=== PATIENT | female | born 1980 | race Caucasian/White ===

== ENCOUNTER 2018-01-12 13:39 | Outpatient (CLI) | payer BC ==
[2018-01-12 14:18] LABS: AMORPHOUS SEDIMENT,URINE TRACE /HPF; APPEARANCE,URINE SLIGHTLY-CLOUDY; BILIRUBIN,URINE NEGATIVE (NEGATIVE); COLOR,URINE YELLOW; GLUCOSE, URINE NEGATIVE (NEGATIVE); KETONES,URINE NEGATIVE (NEGATIVE); LEUKOCYTE ESTERASE,URINE NEGATIVE (NEGATIVE); NITRITE,URINE NEGATIVE (NEGATIVE); PROTEIN,URINE NEGATIVE (NEGATIVE); URINE SPECIFIC GRAVITY 1.012; UROBILINOGEN,URINE NEGATIVE mg/dL (<2.0)
[2018-01-12 14:40] LABS: URINE AMPHETAMINES SCREEN NEGATIVE; URINE BARBITURATES SCREEN NEGATIVE; URINE BENZODIAZEPINES SCREEN NEGATIVE; URINE COCAINE SCREEN NEGATIVE; URINE MARIJUANA (THC) SCREEN NEGATIVE; URINE METHADONE SCREEN NEGATIVE; URINE PHENCYCLIDINE SCREEN NEGATIVE
--- NOTE | 2018-01-12 15:09 | RADIOLOGY REPORT (SQ) ---
EXAM DESCRIPTION: U/S OB LIMITED COMPLETED DATE/TIME: 01/12/2018 2:52 pm REASON FOR STUDY: cervical length and eval placenta gestation 31 weeks 2 days COMPARISON: None. TECHNIQUE: Limited transabdominal grayscale ultrasound for evaluation of specific requested obstetri charli parameters. LIMITATIONS: None. FINDINGS: CERVICAL LENGTH: 3.3 cm. Closed. MARKOS: Not evaluated. Cm. FHR: 158 beats per minute. PRESENTATION: Cephalic. PLACENTA: Fundal grade 1. ANATOMY: Not assessed OTHER: No other significant findings. IMPRESSION: LIMITED OBSTETRICAL ULTRASOUND WITH MEASURED PARAMETERS DELINEATED ABOVE. Trimester of : Third trimester - 28 weeks to delivery. TECHNICAL DOCUMENTATION: JOB ID: [id number] [employer]- All Rights Reserved Reading location - IP/workstation name: [email or web address]
== END 2018-01-12 16:05 | disposition home or self-care (01) ==
LOC: LC 13:39
PROVIDERS: ATTEND Obstetrics & Gynecology
PROC: 4A1HXCZ Monitoring of Products of Conception, Cardiac Rate, External Approach (ICD-10-PCS; principal; 2018-01-12)
DX: O47.03 False labor before 37 completed weeks of gestation, third trimester (principal); O09.513 Supervision of elderly primigravida, third trimester; Z3A.31 31 weeks gestation of pregnancy
CPT/HCPCS: 59025; 76815; 80307; 81001

== ENCOUNTER 2018-02-04 10:30 | Outpatient (CLI) | payer BC ==
[2018-02-04 11:50] LABS: APPEARANCE,URINE CLOUDY; BILIRUBIN,URINE NEGATIVE (NEGATIVE); COLOR,URINE YELLOW; GLUCOSE, URINE NEGATIVE (NEGATIVE); KETONES,URINE NEGATIVE (NEGATIVE); LEUKOCYTE ESTERASE,URINE NEGATIVE (NEGATIVE); NITRITE,URINE NEGATIVE (NEGATIVE); PROTEIN,URINE NEGATIVE (NEGATIVE); URINE SPECIFIC GRAVITY 1.014; UROBILINOGEN,URINE NEGATIVE mg/dL (<2.0)
[2018-02-04 12:01] LABS: ABSOLUTE LYMPHOCYTES (AUTO) 1.5 10^3/uL (0.5-4.7); ABSOLUTE MONOCYTES (AUTO) 0.6 10^3/uL (0.1-1.4); ABSOLUTE NEUT (AUTO) 8.4 10^3/uL (1.7-8.2); BASOPHILS % (AUTO) 0.2 % (0-2); EOSINOPHILS % (AUTO) 0.4 % (0-6); HEMATOCRIT 29.7 % (36.0-47.0); HEMOGLOBIN 10.5 g/dL (12.0-15.5); LYMPHOCYTES % (AUTO) 14.6 % (13-45); MEAN CORPUSCULAR HEMOGLOBIN 32.7 pg (27.0-33.4); MEAN CORPUSCULAR HGB CONC 35.4 g/dL (32.0-36.0); MEAN CORPUSCULAR VOLUME 92 fl (80-97); MONOCYTES % (AUTO) 5.5 % (3-13); PLATELET COUNT 212 10^3/uL (150-450); RED BLOOD COUNT 3.22 10^6/uL (3.72-5.28); RED CELL DISTRIBUTION WIDTH 13.4 % (11.5-14.0); SEGMENTED NEUTROPHILS % (AUTO) 79.3 % (42-78); TOTAL CELLS COUNTED % (AUTO) 100 %; WHITE BLOOD COUNT 10.6 10^3/uL (4.0-10.5)
[2018-02-04 12:04] LABS: URINE AMPHETAMINES SCREEN NEGATIVE; URINE BARBITURATES SCREEN NEGATIVE; URINE BENZODIAZEPINES SCREEN NEGATIVE; URINE COCAINE SCREEN NEGATIVE; URINE MARIJUANA (THC) SCREEN NEGATIVE; URINE METHADONE SCREEN NEGATIVE; URINE PHENCYCLIDINE SCREEN NEGATIVE
[2018-02-04 12:08] LABS: UR PRO/CREAT RATIO RESULT 0.2 mg/mg (0.0-0.2); URINE CREATININE 101.8 mg/dL (16-327); URINE PROTEIN 15.6 mg/dL (<12)
[2018-02-04 12:21] LABS: ALANINE AMINOTRANSFERASE 15 U/L (9-52); ALBUMIN 3.3 g/dL (3.5-5.0); ALKALINE PHOSPHATASE 62 U/L (38-126); ANION GAP 8 (5-19); ASPARTATE AMINO TRANSFERASE 17 U/L (14-36); BILIRUBIN,DIRECT 0.2 mg/dL (0.0-0.4); BILIRUBIN,TOTAL 0.3 mg/dL (0.2-1.3); BLOOD UREA NITROGEN 6 mg/dL (7-20); CALCIUM 9.4 mg/dL (8.4-10.2); CARBON DIOXIDE 26 mmol/L (22-30); CHLORIDE 105 mmol/L (98-107); GLUCOSE 107 mg/dL (75-110); POTASSIUM 3.6 mmol/L (3.6-5.0); TOTAL PROTEIN 5.8 g/dL (6.3-8.2); URIC ACID 4.4 mg/dL (2.5-7.0)
--- NOTE | 2018-02-04 14:56 | Non Stress Test Report ---
Non Stress Test Datetime Report Generated by CPN: 02/04/2018 14:56 DEMOGRAPHIC EGA NST: 34.5 EGA NST: 31.3 INDICATION Indication for Study: Ordered by Provider Indication for Study: Ordered by Provider VITAL SIGNS Temperature - NST: 99.7 RESP - NST: 18 MONITORING Monitor Explained: Monitor Explained; Test Explained; Patient Verbalized Understanding Monitor Explained: Monitor Explained; Test Explained; Patient Verbalized Understanding Time on Monitor: 02/04/2018 11:04 Time on Monitor: 01/12/2018 14:05 Time off Monitor: 02/04/2018 13:16 Time off Monitor: 01/12/2018 15:58 NST Duration: 132 NST Duration: 113 NST INTERVENTIONS NST Interventions: PO Hydration; Reposition Patient NST Interventions: PO Hydration Physician Notified NST: Dr. Mancia BABY A: [id number] BABY A Movement : Present Movement : Present Contraction Frequency : rare FHR Baseline : 145 FHR Baseline : 135 Accelerations : 15X15 Accelerations : 15X15 Decelerations : None Decelerations : None Variability : Moderate 6-25bpm Variability : Moderate 6-25bpm NST Review: Meets Criteria for Reactive NST NST Review: Meets Criteria for Reactive NST NST Review and Verified By : Di Peña RN NST Review and Verified By : Dean Bennett RN NST Results: Reactive NST Results: Reactive NST REPORT Report Trigger: Send Report
== END 2018-02-04 13:35 | disposition home or self-care (01) ==
LOC: LC 10:30
PROVIDERS: ATTEND Obstetrics & Gynecology
PROC: 4A1HXCZ Monitoring of Products of Conception, Cardiac Rate, External Approach (ICD-10-PCS; principal; 2018-02-04)
DX: O14.93 Unspecified pre-eclampsia, third trimester (principal); Z3A.34 34 weeks gestation of pregnancy
CPT/HCPCS: 36415; 59025; 80053; 80307; 81001; 82570; 83615; 84156; 84550; 85025

== ENCOUNTER 2018-02-20 17:13 | Inpatient (IN) | payer BC ==
[2018-02-20] MEDS ORDERED: DINOPROSTONE 10 MG VAGINAL INSERT.SR PV PRN (17:19)
[2018-02-20] MEDS ORDERED: RINGERS SOLUTION,LACTATED 300 ML IV ONE (17:19)
[2018-02-20 18:06] LABS: ABSOLUTE EOSINOPHILS # (AUTO) 0.1 10^3/uL (0.0-0.6); ABSOLUTE LYMPHOCYTES (AUTO) 2.3 10^3/uL (0.5-4.7); ABSOLUTE MONOCYTES (AUTO) 0.7 10^3/uL (0.1-1.4); ABSOLUTE NEUT (AUTO) 9.2 10^3/uL (1.7-8.2); BASOPHILS % (AUTO) 0.2 % (0-2); EOSINOPHILS % (AUTO) 0.6 % (0-6); HEMATOCRIT 31.8 % (36.0-47.0); HEMOGLOBIN 10.9 g/dL (12.0-15.5); LYMPHOCYTES % (AUTO) 18.5 % (13-45); MEAN CORPUSCULAR HEMOGLOBIN 31.5 pg (27.0-33.4); MEAN CORPUSCULAR HGB CONC 34.4 g/dL (32.0-36.0); MEAN CORPUSCULAR VOLUME 92 fl (80-97); MONOCYTES % (AUTO) 5.5 % (3-13); PLATELET COUNT 241 10^3/uL (150-450); RED BLOOD COUNT 3.47 10^6/uL (3.72-5.28); RED CELL DISTRIBUTION WIDTH 13.7 % (11.5-14.0); SEGMENTED NEUTROPHILS % (AUTO) 75.2 % (42-78); TOTAL CELLS COUNTED % (AUTO) 100 %; WHITE BLOOD COUNT 12.2 10^3/uL (4.0-10.5)
[2018-02-20] MEDS: RINGERS SOLUTION,LACTATED 1,000 ML IV PRN (18:10)
[2018-02-20] MEDS ORDERED: DINOPROSTONE 10 MG VAGINAL INSERT.SR ONE (18:24)
[2018-02-20] MEDS ORDERED: GLYBURIDE 5 MG TABLET ONE (19:59)
[2018-02-20] MEDS ORDERED: NIFEDIPINE 30 MG TAB.ER.24 PO ONE ×2 (20:00→21:00)
--- NOTE | 2018-02-20 20:06 | Admission Physical ---
Datetime Report Generated by CPN: 02/20/2018 20:05 CURRENT ADMISSION Chief Complaint: Scheduled Induction of Labor Indication for Induction: Chronic Secondary HTN (Specify Cause); Maternal Diabetes Indication for Induction- Other: AMA, obesity Admit Impression : Term, Intrauterine ; No Active Labor Admit Plan: Admit to Unit; Initiate Labor Induction Protocol ALLERGIES Medication Allergies: Yes Medication Allergies: codeine/MO/headache, anxie (01/12/2018) Latex: No Latex Allergies Food Allergies: n/a Environmental Allergies: seasonal OBSTETRICAL HISTORY EDC: 03/13/2018 00:00 : 1 Para: 0 Term: 0 : 0 SAB: 0 IAB: 0 Ectopic: 0 Livin Cesareans: 0 VBACs: 0 Multiple Births: 0 Gestational Diabetes: Yes Rh Sensitization: No Incompetent Cervix: No TOMÁS: No Infertility: Yes ART Treatment: No Uterine Anomaly: No IUGR: No Hx Previous C/S: No Macrosomia: No Hx Loss/Stillborn: No PIH: No Hx : No Placenta Previa/Abruption: No Depression/PP Depression: No PTL/PROM: No Post Hemorrhage: No Current Procedures: Ultrasound; NST Obstetrical History Comments: G1- current , GDM, CHTN SEE RECORDS Alcohol: No Marijuana : No Cocaine: No Other Illicit Drugs: No Cigarettes: Former Smoker. [id number] MEDICAL HISTORY Diabetes: No Diabetes Type: Gestational Diabetes Blood Transfusion: No Pulmonary Disease (Asthma, TB): No Breast Disease: No Hypertension: Yes Manager Background Surgery: No Heart Disease: No Hosp/Surgery: Yes Autoimmune Disorder: No Anesthetic Complications: No Kidney Disease: Yes Abnormal Pap Smear: No Neuro/Epilepsy: No Psychiatric Disorders: No Other Medical Diseases: No Hepatitis/Liver Disease: No Significant Family History: No Varicosities/Phlebitis: No Trauma/Violence : No Thyroid Dysfunction: No Medical History Comments: CHTN AMA OBESITY HX KIDNEY STONES/cyst removed from neck /tonsillectomy/ulnar transpo INFECTIOUS HISTORY Gonorrhea: No Genital Herpes: No Chlamydia: No Tuberculosis: No Syphilis: No Hepatitis: No HIV/AIDS Exposure: No Rash or Viral Illness: No HPV: No PHYSICAL EXAM General: Normal HEENT: Normal Neurologic: Normal Thyroid: Normal Heart: Normal Lungs: Normal Breast: Normal Back: Normal Abdomen: Normal Genitourinary Exam: Normal Extremities: Normal DTRs: Normal Pelvic Type: Adequate Vital Signs: Reviewed; Within Normal Limits VAGINAL EXAM Dilatation: closed Effacement: 50 Station: -2 Contraction Comments: irregular MEMBRANES Membranes: Intact FETUS A EGA: 37.0 Monitoring: External US FHR- Baseline: 140s Accelerations: 15X15 Decelerations: None FHR Category: Category I Admit Comment: Pt currently taking Glyburide 2.5 mg qhs and Procardia 30 mg qd. Cervidil placed at 1836. PLANS FOR LABOR AND DELIVERY Labor and Delivery: None Pain Management: Natural; Medications; Epidural Feeding Preference: Breast Benefit of Breast Feed Discussed: Yes Circumcision: N/A INFORMED CONSENT Signature: with User ID: [email or web address]
[2018-02-20] MEDS ORDERED: GLYBURIDE 2.5 MG TABLET PO ONE (20:20)
[2018-02-20 20:50] LABS: APPEARANCE,URINE SLIGHTLY-CLOUDY; BILIRUBIN,URINE NEGATIVE (NEGATIVE); COLOR,URINE YELLOW; GLUCOSE, URINE NEGATIVE (NEGATIVE); KETONES,URINE 20 mg/dL (NEGATIVE); LEUKOCYTE ESTERASE,URINE NEGATIVE (NEGATIVE); NITRITE,URINE NEGATIVE (NEGATIVE); PROTEIN,URINE 30 mg/dL (NEGATIVE); UROBILINOGEN,URINE NEGATIVE mg/dL (<2.0)
[2018-02-20 21:47] LABS: URINE AMPHETAMINES SCREEN NEGATIVE; URINE BARBITURATES SCREEN NEGATIVE; URINE BENZODIAZEPINES SCREEN NEGATIVE; URINE COCAINE SCREEN NEGATIVE; URINE MARIJUANA (THC) SCREEN NEGATIVE; URINE METHADONE SCREEN NEGATIVE; URINE PHENCYCLIDINE SCREEN NEGATIVE
[2018-02-21] MEDS ORDERED: ACETAMINOPHEN 325 MG TABLET ONE (05:35)
[2018-02-21] MEDS ORDERED: OXYTOCIN/NORMAL SALINE 20 UNIT/1,000 ML RTUINJ ONE (08:55)
[2018-02-21] MEDS ORDERED: RINGERS SOLUTION,LACTATED 1,000 ML IV PRN (08:59)
[2018-02-21] MEDS ORDERED: OXYTOCIN/NORMAL SALINE 20 UNIT/1,000 ML RTUINJ IV PRN ×2 (08:59→17:02)
[2018-02-21] MEDS: RINGERS SOLUTION,LACTATED 1,000 ML IV PRN (09:14)
[2018-02-21] MEDS ORDERED: DIPHENHYDRAMINE HCL 25 MG CAPSULE ONE (09:19)
--- NOTE | 2018-02-21 09:19 | L&D Progress Notes ---
PROGRESS NOTES Datetime Report Generated by CPN: 02/21/2018 09:18 PROGRESS NOTE Impression Other: IUP @ 37w1d- IOL Procedures: Sterile Vag Exam Plan: Continue Present Management; Induction Informed Consent Obtained: Vaginal Delivery; Induction of Labor; Risks, Benefits and Alternatives Discussed Vital Signs : Reviewed; Within Normal Limits Comment: S: reports to be doing well this morning, rare cramping, no concerns O: VSS, cervix as stated,posterior and soft, cervidil out @ 0630, irreg contractions A: IUP @ 37w1d- IOL for AMA, CHTN, GDM A2-stable, P: Reviewed lack of change with cervidil, start pitocin per Dr. Arrieta who is the OB otm consultant today. Reviewed Plan with patient. Will reasess as clinically indicated or earlier prn. VAGINAL EXAM Dilatation: 0 Dilatation: closed Effacement: 0 Effacement: 50 Station: -3 Station: -2 Contractions: irreg Contractions: irregular LAST VAGINAL EXAM-NURSING Dilitation: 0.0 Dilitation: closed Effacement: THICK Effacement: 50 Station: -3 Station: -2 Contractions: uterine irritability Contractions: none MEMBRANES Membranes: Intact Membranes: Intact FETUS A FHR - Baseline: 150 Monitoring: External US Variability: Moderate 6-25bpm Accelerations: 15X15 FHR Category: Category I : 37.0 SIGNATURE SIGNATURE: [id number];[id number];[id number] SIGNATURE: [id number];[id number] SIGNATURE: [id number] Assignment: Isai Arrieta MD Signature: with User ID: Vicki : with User ID: [email or web address]
[2018-02-21] MEDS ORDERED: MAG HYDROX/AL HYDROX/SIMETH SUSP 30 ML UDCUP ONE ×2 (09:20→22:00)
[2018-02-21] MEDS ORDERED: DIPHENHYDRAMINE HCL 25 MG CAPSULE PO ONE (10:00)
[2018-02-21] MEDS ORDERED: MAG HYDROX/AL HYDROX/SIMETH SUSP 30 ML UDCUP PO ONE (10:00)
[2018-02-21] MEDS ORDERED: NIFEDIPINE 30 MG TAB.ER.24 PO ONE ×2 (10:10→20:00)
[2018-02-21] MEDS: NIFEDIPINE 30 MG TAB.ER.24 PO SCH ×2 (10:11→20:03)
[2018-02-21] MEDS ORDERED: DINOPROSTONE 10 MG VAGINAL INSERT.SR PV ONE (17:02)
[2018-02-21] MEDS ORDERED: DINOPROSTONE 10 MG VAGINAL INSERT.SR ONE (20:00)
[2018-02-21] MEDS: GLYBURIDE 2.5 MG TABLET PO SCH (22:02)
[2018-02-22] MEDS ORDERED: DIPHENHYDRAMINE HCL 25 MG CAPSULE ONE (06:04)
[2018-02-22] MEDS ORDERED: MISOPROSTOL 0.1 MG TABLET ONE ×2 (08:39→14:14)
[2018-02-22] MEDS ORDERED: MAG HYDROX/AL HYDROX/SIMETH SUSP 30 ML UDCUP ONE (10:06)
[2018-02-22] MEDS ORDERED: NIFEDIPINE 30 MG TAB.ER.24 PO ONE ×2 (10:06→18:10)
--- NOTE | 2018-02-22 10:24 | L&D Progress Notes ---
PROGRESS NOTES Datetime Report Generated by CPN: 02/22/2018 10:24 PROGRESS NOTE Impression Other: IUP @ [id number] Procedures: Sterile Vag Exam Plan: Continue Present Management; Induction Informed Consent Obtained: Induction of Labor; Risks, Benefits and Alternatives Discussed Vital Signs : Reviewed Vital Signs Comments: mild range Comment: S: continues to be comfortable, no concerns this am O: Irreg ctx, Cat I tracing, cervix as stated A: IUP @ 37w2d- IOL secondary to CHTN, GDM-A2, AMA- 2nd day induction, stable P: cytotec po and pv will reassess in 4hrs or earlier prn as clinically indicated. Discussed with Dr. Mancia who is the OB dermatology nurse practitioner today. Pt. and asked questions and verbalized understanding. VAGINAL EXAM Contractions: irregular LAST VAGINAL EXAM-NURSING Dilitation: closed Dilitation: 0.0 Effacement: 60 Effacement: 50 Station: -3 Station: -2 Contractions: Uterine Irritability noted. Contractions: Uterine Irritability noted . Contractions: Uterine Irritability noted. Contractions: Uterine Irritability noted. Contractions: Uterine Irritability noted. Contractions: Uterine Irritability noted Contractions: Uterine Irritability noted. Contractions: Uterine Irritability noted Contractions: Uterine Irritability MEMBRANES Membranes: Intact FETUS A Monitoring: External US FHR Category: Category I SIGNATURE SIGNATURE: [id number];[id number];[id number] Assignment: Itzel Mancia MD Signature: with User ID: Vicki : with User ID: [email or web address]
[2018-02-22] MEDS ORDERED: MAG HYDROX/AL HYDROX/SIMETH SUSP 30 ML UDCUP PO ONE (10:30)
[2018-02-22] MEDS ORDERED: MISOPROSTOL 0.1 MG TABLET PV ONE ×2 (11:00)
[2018-02-22] MEDS: NIFEDIPINE 30 MG TAB.ER.24 PO SCH (18:14)
[2018-02-22] MEDS ORDERED: LIDOCAINE 1% INJ-PF (10 MG/ML) 30 ML SDV ONE (19:16)
[2018-02-22] MEDS ORDERED: MISOPROSTOL 0.2 MG TABLET ONE (19:16)
[2018-02-22] MEDS ORDERED: OXYTOCIN 10 UNIT/ML VIAL ONE (19:16)
[2018-02-22] MEDS: GLYBURIDE 2.5 MG TABLET PO SCH (22:07)
[2018-02-22] MEDS ORDERED: PHENYLEPHRINE HCL INJ/PF 10 MG/1 ML SDV ONE (23:30)
[2018-02-22] MEDS ORDERED: EPHEDRINE SULFATE INJ 50 MG/1 ML AMPULE ONE (23:30)
[2018-02-22] MEDS ORDERED: FENTANYL CITRATE INJ/PF 100 MCG/2 ML AMPUL ONE (23:30)
[2018-02-22] MEDS ORDERED: BUPIVACAINE HCL 0.25 % INJ/PF (2.5 MG/1 ML) 30 ML VIAL ONE (23:30)
[2018-02-22] MEDS ORDERED: FENTANYL/BUPIVACAINE/NS/PF 300 MCG/150 ML RTUINJ EPI ONE (23:31)
[2018-02-22 23:47] LABS: ABSOLUTE EOSINOPHILS # (AUTO) 0.1 10^3/uL (0.0-0.6); ABSOLUTE LYMPHOCYTES (AUTO) 2.4 10^3/uL (0.5-4.7); ABSOLUTE NEUT (AUTO) 13.3 10^3/uL (1.7-8.2); BASOPHILS % (AUTO) 0.2 % (0-2); EOSINOPHILS % (AUTO) 0.6 % (0-6); HEMATOCRIT 33.2 % (36.0-47.0); HEMOGLOBIN 11.2 g/dL (12.0-15.5); LYMPHOCYTES % (AUTO) 14.2 % (13-45); MEAN CORPUSCULAR HEMOGLOBIN 31.1 pg (27.0-33.4); MEAN CORPUSCULAR HGB CONC 33.9 g/dL (32.0-36.0); MEAN CORPUSCULAR VOLUME 92 fl (80-97); MONOCYTES % (AUTO) 5.9 % (3-13); PLATELET COUNT 218 10^3/uL (150-450); RED BLOOD COUNT 3.61 10^6/uL (3.72-5.28); RED CELL DISTRIBUTION WIDTH 13.3 % (11.5-14.0); SEGMENTED NEUTROPHILS % (AUTO) 79.1 % (42-78); TOTAL CELLS COUNTED % (AUTO) 100 %; WHITE BLOOD COUNT 16.9 10^3/uL (4.0-10.5)
[2018-02-22] MEDS ORDERED: HYDRALAZINE HCL INJ/PF 20 MG/1 ML SDV IV ONE (23:59)
[2018-02-23] MEDS ORDERED: HYDRALAZINE HCL INJ/PF 20 MG/1 ML SDV ONE (00:01)
[2018-02-23] MEDS ORDERED: ACETAMINOPHEN 325 MG TABLET PO ONE (07:54)
[2018-02-23] MEDS ORDERED: ACETAMINOPHEN 325 MG TABLET ONE (07:59)
[2018-02-23 09:54] LABS: ABSOLUTE LYMPHOCYTES (AUTO) 1.6 10^3/uL (0.5-4.7); ABSOLUTE MONOCYTES (AUTO) 0.9 10^3/uL (0.1-1.4); ABSOLUTE NEUT (AUTO) 14.1 10^3/uL (1.7-8.2); BASOPHILS % (AUTO) 0.1 % (0-2); LYMPHOCYTES % (AUTO) 9.4 % (13-45); MEAN CORPUSCULAR HEMOGLOBIN 31.6 pg (27.0-33.4); MEAN CORPUSCULAR HGB CONC 34.3 g/dL (32.0-36.0); MEAN CORPUSCULAR VOLUME 92 fl (80-97); MONOCYTES % (AUTO) 5.4 % (3-13); PLATELET COUNT 187 10^3/uL (150-450); RED BLOOD COUNT 3.15 10^6/uL (3.72-5.28); RED CELL DISTRIBUTION WIDTH 13.6 % (11.5-14.0); SEGMENTED NEUTROPHILS % (AUTO) 85.1 % (42-78); TOTAL CELLS COUNTED % (AUTO) 100 %; WHITE BLOOD COUNT 16.6 10^3/uL (4.0-10.5)
[2018-02-23] MEDS ORDERED: NIFEDIPINE 30 MG TAB.ER.24 PO ONE (10:00)
[2018-02-23] MEDS: NIFEDIPINE 30 MG TAB.ER.24 PO SCH (10:02)
[2018-02-23 10:14] LABS: ALANINE AMINOTRANSFERASE 14 U/L (9-52); ALBUMIN 2.8 g/dL (3.5-5.0); ALKALINE PHOSPHATASE 78 U/L (38-126); ANION GAP 5 (5-19); ASPARTATE AMINO TRANSFERASE 19 U/L (14-36); BILIRUBIN,DIRECT 0.2 mg/dL (0.0-0.4); BILIRUBIN,TOTAL 0.4 mg/dL (0.2-1.3); BLOOD UREA NITROGEN 6 mg/dL (7-20); CALCIUM 8.6 mg/dL (8.4-10.2); CARBON DIOXIDE 22 mmol/L (22-30); CHLORIDE 109 mmol/L (98-107); GLUCOSE 106 mg/dL (75-110); POTASSIUM 3.5 mmol/L (3.6-5.0); SODIUM 136.1 mmol/L (137-145); TOTAL PROTEIN 5.2 g/dL (6.3-8.2)
[2018-02-23] MEDS ORDERED: DIPHENHYDRAMINE HCL 25 MG CAPSULE PO PRN (10:17)
[2018-02-23] MEDS ORDERED: DIPHENHYDRAMINE HCL 25 MG CAPSULE ONE (10:28)
[2018-02-23] MEDS ORDERED: FENTANYL/BUPIVACAINE/NS/PF 300 MCG/150 ML RTUINJ EPI ONE (10:58)
[2018-02-23] MEDS ORDERED: LIDOCAINE 2% INJ-PF (20 MG/ML) 10 ML AMPUL ONE (10:58)
[2018-02-23] MEDS ORDERED: CEFAZOLIN 2 GM/D5W RTU 2 GM/50 ML RTUPB IV ONE (15:39)
[2018-02-23] MEDS ORDERED: CITRIC ACID/SODIUM CITRATE ORAL SOLN 15 ML UDCUP ONE (15:40)
[2018-02-23] MEDS ORDERED: BUPIVACAINE HCL/DEX-WATER/PF 15 MG/2 ML AMPULE ONE (16:00)
[2018-02-23] MEDS ORDERED: OXYTOCIN/NORMAL SALINE 20 UNIT/1,000 ML RTUINJ ONE (16:00)
[2018-02-23] MEDS ORDERED: MIDAZOLAM 2 MG/2 ML INJ ONE (16:00)
[2018-02-23] MEDS ORDERED: EPHEDRINE SULFATE INJ 50 MG/1 ML AMPULE ONE (16:00)
[2018-02-23] MEDS ORDERED: KETOROLAC TROMETHAMINE INJ/PF 30 MG/1 ML SDV ONE (16:00)
[2018-02-23] MEDS ORDERED: OXYTOCIN 10 UNIT/ML VIAL ONE (16:00)
[2018-02-23] MEDS ORDERED: FENTANYL CITRATE INJ/PF 100 MCG/2 ML AMPUL ONE (16:00)
[2018-02-23] MEDS ORDERED: ACETAMINOPHEN 1,000 MG/100 ML RTUPB IV ONE (16:01)
[2018-02-23] MEDS ORDERED: ONDANSETRON HCL INJ/PF 4 MG/2 ML SDV ONE (16:01)
[2018-02-23] MEDS ORDERED: DIPH/PERTUSS(ACELL)/TETANUS VAC/PF 0.5 ML SYR (>=10YO) IM PRN (16:22)
[2018-02-23] MEDS ORDERED: OXYCODONE-ACETAMINOPHEN 5-325 MG TABLET PO PRN (16:22)
[2018-02-23] MEDS ORDERED: RINGERS SOLUTION,LACTATED 1,000 ML IV PRN (16:22)
[2018-02-23] MEDS ORDERED: OXYTOCIN/NORMAL SALINE 20 UNIT/1,000 ML RTUINJ IV PRN (16:22)
[2018-02-23] MEDS ORDERED: PROMETHAZINE HCL INJ 25 MG/1 ML VIAL IV PRN (16:22)
[2018-02-23] MEDS ORDERED: MEASLES,MUMPS&RUBELLA VACC/PF 0.5 ML VIAL SUBCUT PRN (16:22)
[2018-02-23] MEDS ORDERED: SIMETHICONE 80 MG TAB.CHEW PO PRN (16:22)
[2018-02-23] MEDS ORDERED: ACETAMINOPHEN 325 MG TABLET PO PRN (16:22)
--- NOTE | 2018-02-23 17:36 | Operative Report ---
Operative Report DATE OF SURGERY: 02/23/18 PREOPERATIVE DIAGNOSIS: Arrest of dilatation and persistent occiput posterior, desires tubal ligation POSTOPERATIVE DIAGNOSIS: Same OPERATION: Primary via low transverse uterine incision and a tubal ligation with Filshie clips SURGEON: DREW VALDEZ ANESTHESIA: Spinal TISSUE REMOVED OR ALTERED: Placenta COMPLICATIONS: None ESTIMATED BLOOD LOSS: 250 cc INTRAOPERATIVE FINDINGS: Viable female infant occiput posterior presentation. Normal tubes and ovaries. PROCEDURE: Patient has not changed her cervix and over 4 hours now. She is approximately 5 cm dilated. We discussed options and she wished to proceed with a as opposed to continuing the induction. Patient was taken to the OR and placed in supine position after her spinal anesthesia. She is prepared and draped in sterile fashion. Gomez was placed for drainage of the bladder. Low transverse incision was made and carried down the level of the fascia. The fascial incision was made with knife and extended bilaterally with curved Downey scissors. The fascia was off the rectus muscles using sharp and blunt dissection. The rectus muscles are in the midline. The peritoneum was entered without incident. Bladder blade was placed in uterine segment was identified. A low transverse incision was made creating a bladder flap. Bladder blade was placed low transverse uterine incision was made with the csafe knife and extended with fingertips. The baby was delivered with some fundal pressure. Mouth and nose were suctioned free. The cord is doubly clamped and cut. Baby is passed off to the color specialist in attendance. The placenta was manually extracted with trailing membranes. The uterus was externalized wrapped in a moist lap sponge. Uterine contents wiped free. Uterus was closed with a running locking layer of 0 chromic suture using the second layer to imbricate the first completing a double layer closure of the uterus. The serosa was closed with a running 2-0 chromic stitch. The tubal ligation was carried out by placing a Filshie clip across the mid isthmic portion of each fallopian tube. Each tube was identified by its fimbriated end prior to clamping the tube. The pelvis was irrigated and suctioned free of fluid the uterus was replaced in the abdomen. The abdominal wall peritoneum was closed with running 2-0 chromic stitch. Fascia was closed with a running 0 Vicryl in 2 segments. Sylvia's layer was brought together with 0 plain gut stitch and the skin was closed with running subcuticular 4-0 undyed Vicryl stitch. The wound was dressed mother and baby did well.
[2018-02-23] MEDS ORDERED: HYDROMORPHONE HCL INJ/PF 2 MG/ML AMPULE ONE (19:03)
[2018-02-23] MEDS: HYDROMORPHONE HCL INJ/PF 2 MG/ML AMPULE IV PRN ×2 (19:09→22:27)
[2018-02-23] MEDS ORDERED: KETOROLAC TROMETHAMINE INJ/PF 30 MG/1 ML SDV IV SCH (22:00)
[2018-02-24] MEDS ORDERED: KETOROLAC TROMETHAMINE INJ/PF 30 MG/1 ML SDV IV ONE (04:00)
[2018-02-24] MEDS: NIFEDIPINE 30 MG TAB.ER.24 PO SCH ×2 (06:12→18:34)
[2018-02-24 08:07] LABS: HEMATOCRIT 24.5 % (36.0-47.0); HEMOGLOBIN 8.6 g/dL (12.0-15.5); MEAN CORPUSCULAR HEMOGLOBIN 32.1 pg (27.0-33.4); MEAN CORPUSCULAR HGB CONC 35.1 g/dL (32.0-36.0); MEAN CORPUSCULAR VOLUME 92 fl (80-97); PLATELET COUNT 181 10^3/uL (150-450); RED BLOOD COUNT 2.68 10^6/uL (3.72-5.28); RED CELL DISTRIBUTION WIDTH 13.7 % (11.5-14.0); WHITE BLOOD COUNT 16.7 10^3/uL (4.0-10.5)
--- NOTE | 2018-02-24 09:13 | PDOC PROGRESS REPORT ---
Subjective Progress Note for:: 02/24/18 Subjective:: Patient states that she feels good; painful currently, but pain medication works well. Decreasing lochia. Patient denies chest pain, shortness of breath, fever/chills and nausea/vomiting. She is ambulating and voiding without difficulty. Reason For Visit: INDUCTION FOR CHRONIC HYPERTENSION Physical Exam - Physical Exam Vital Signs: Temp Pulse Resp BP Pulse Ox 99.3 F 98 16 153/90 H 97 02/24/18 03:29 02/24/18 03:29 02/24/18 03:29 02/24/18 03:29 02/24/18 03:29 Intake & Output 02/23/18 02/24/18 02/25/18 06:59 06:59 06:59 Intake Total 750 Output Total 1750 Balance -1000 General appearance: PRESENT: no acute distress Respiratory exam: PRESENT: clear to auscultation tana Cardiovascular exam: PRESENT: RRR GI/Abdominal exam: PRESENT: normal bowel sounds, soft - Incision: Clean/dry/intact; no erythema Extremities exam: ABSENT: calf tenderness, clubbing, full ROM, joint swelling, pedal edema, tenderness, +1 edema, +2 edema, other Result Laboratory Results: 02/24/18 07:23 02/23/18 09:25 02/23/18 02/23/18 02/23/18 09:25 09:25 09:25 WBC 16.6 H RBC 3.15 L Hgb 10.0 L Hct 29.0 L MCV 92 MCH 31.6 MCHC 34.3 RDW 13.6 Plt Count 187 Seg Neutrophils % 85.1 H Lymphocytes % 9.4 L Monocytes % 5.4 Eosinophils % 0.0 Basophils % 0.1 Absolute Neutrophils 14.1 H Absolute Lymphocytes 1.6 Absolute Monocytes 0.9 Absolute Eosinophils 0.0 Absolute Basophils 0.0 Sodium 136.1 L Potassium 3.5 L Chloride 109 H Carbon Dioxide 22 Anion Gap 5 BUN 6 L Creatinine 0.45 L Est GFR ( Amer) > 60 Est GFR (Non-Af Amer) > 60 Glucose 106 Uric Acid 4.1 Calcium 8.6 Total Bilirubin 0.4 AST 19 ALT 14 Alkaline Phosphatase 78 Total Protein 5.2 L Albumin 2.8 L Blood Type Antibody Screen 02/24/18 02/24/18 07:23 07:23 WBC 16.7 H RBC 2.68 L Hgb 8.6 L Hct 24.5 L MCV 92 MCH 32.1 MCHC 35.1 RDW 13.7 Plt Count 181 Seg Neutrophils % Lymphocytes % Monocytes % Eosinophils % Basophils % Absolute Neutrophils Absolute Lymphocytes Absolute Monocytes Absolute Eosinophils Absolute Basophils Sodium Potassium Chloride Carbon Dioxide Anion Gap BUN Creatinine Est GFR ( Amer) Est GFR (Non-Af Amer) Glucose Uric Acid Calcium Total Bilirubin AST ALT Alkaline Phosphatase Total Protein Albumin Blood Type A NEGATIVE Antibody Screen Cancelled Assessment & Plan - Diagnosis (1) Postoperative anemia Is this a current diagnosis for this admission?: Yes (2) Advanced maternal age (AMA) in Is this a current diagnosis for this admission?: Yes (3) Chronic hypertension affecting Is this a current diagnosis for this admission?: Yes (4) Gestational diabetes mellitus (GDM) affecting first Is this a current diagnosis for this admission?: Yes - Time Time Spent with patient: Less than 15 minutes Within: within 24 hours - Plan Summary Plan Summary: Continue /postoperative care
[2018-02-24] MEDS ORDERED: KETOROLAC TROMETHAMINE INJ/PF 30 MG/1 ML SDV IV SCH ×2 (10:00→12:00)
[2018-02-24] MEDS ORDERED: IRON SUCROSE COMPLEX INJ/PF 100 MG/5 ML SDV IV ONE (10:00)
[2018-02-24] MEDS: DOCUSATE SODIUM 100 MG CAPSULE PO SCH ×3 (10:20→22:54)
[2018-02-24] MEDS: PRENATAL VITAMIN W DHA CAPSULE PO SCH (10:20)
[2018-02-24] MEDS: OXYCODONE-ACETAMINOPHEN 5-325 MG TABLET PO PRN ×3 (10:20→21:25)
[2018-02-24] MEDS: IBUPROFEN 800 MG TABLET PO SCH ×2 (18:32→23:06)
[2018-02-25] MEDS: OXYCODONE-ACETAMINOPHEN 5-325 MG TABLET PO PRN ×2 (03:37→08:24)
[2018-02-25] MEDS: NIFEDIPINE 30 MG TAB.ER.24 PO SCH (05:50)
[2018-02-25] MEDS: IBUPROFEN 800 MG TABLET PO SCH ×2 (05:51→13:23)
--- NOTE | 2018-02-25 09:19 | PDOC DISCHARGE SUMMARY ---
Final Diagnosis Discharge Date: 02/25/18 - POD#2, doing well, denies complaints, , failed IOL for elevated BP's. A negative/ Rubella NI - Final Diagnosis (1) Advanced maternal age (AMA) in Is this a current diagnosis for this admission?: Yes (2) Chronic hypertension affecting Is this a current diagnosis for this admission?: Yes (3) Gestational diabetes mellitus (GDM) affecting first Is this a current diagnosis for this admission?: Yes (4) Postoperative anemia Is this a current diagnosis for this admission?: Yes Discharge Data - Discharge Medication Prescriptions: Ibuprofen [Motrin 800 mg Tablet] 800 mg PO Q6 #60 tablet Nifedipine [Procardia XL 30 mg Tablet] 30 mg PO BID #60 tab.er.24 Home Medications: Vits96/Iron Fum/Folic [ Tablet] 1 each PO DAILY 01/12/18 Glyburide/Metformin HCl [Glyburide-Metformin 2.5-500 mg] 2.5 mg PO DAILY 02/20/18 Ibuprofen [Motrin 800 mg Tablet] 800 mg PO Q6 #60 tablet 02/25/18 Nifedipine [Procardia XL 30 mg Tablet] 30 mg PO BID #60 tab.er.24 02/25/18 Reason(s) for Admission: Ceasarean Section-Primary, Other - CHTN Procedures: NST, Ultrasound Intrapartum Procedure(s): : Low Cervical, Transverse - Diagnosis Test Laboratory: Temp Pulse Resp BP Pulse Ox 98.0 F 112 H 18 154/85 H 98 02/25/18 03:39 02/25/18 03:39 02/25/18 03:39 02/25/18 03:39 02/25/18 03:39 02/20/18 02/20/18 02/22/18 17:37 17:55 23:38 RBC 3.47 L 3.61 L Hgb 10.9 L 11.2 L Hct 31.8 L 33.2 L Urine Opiates Screen NEGATIVE 02/23/18 02/24/18 09:25 07:23 RBC 3.15 L 2.68 L Hgb 10.0 L 8.6 L Hct 29.0 L 24.5 L Urine Opiates Screen - Discharge information/Instructions Discharge Activity: Activity As Tolerated, No Driving, Pelvic Rest Discharge Diet: As Tolerated, Regular Disposition: HOME, SELF-CARE Follow up with: [facility] in: 1, Weeks
--- NOTE | 2018-02-25 09:43 | Delivery Summary ---
Del Sum A-C Datetime Report Generated by CPN: 02/25/2018 09:43 DELIVERY PERSONNEL DELIVERY PERSONNEL: [id number] Delivery Doctor:: Miller Bird MD Anesthesiologist:: Jovani Wyman MD PANELBOARD ASSEMBLER:: Gerardo Miller CRNA Labor and Delivery Nurse:: Keenan Stover RNtiming machine operator Nurse:: Trinidad Barrow RN Cherry Dipper:: Keenan Stover RN [employer]/TANKAGE SUPERVISOR: Patrizia Murillo CST [employer]/TANKAGE SUPERVISOR: Ashley Hopkins CST [employer]/TANKAGE SUPERVISOR: Ashley Hopkins CST [employer]/TANKAGE SUPERVISOR: Patrizia Murillo LIFT MANAGER MATERNAL INFORMATION Delivery Anesthesia: Epidural; Spinal Medications After Delivery: Pitocin Bolus-Please Comment Meds After Delivery Comment: 20 units pitocin in 1000ml NS x2 Maternal Complications: Prolonged Labor > 20 Hrs LABOR SUMMARY EDC: 03/13/2018 00:00 No. Babies in Womb: 1 Attempted: No Labor Anesthesia: Epidural LABOR INFORMATION Reason for Induction: Chronic Primary/Essential HTN; Maternal Diabetes Onset of Labor: 02/23/2018 10:54 Cervical Ripening Agents: Gomez Balloon Cervical Ripening Agents: Cytotec @ 0.025 vaginally Cervical Ripening Agents: Cytotec @ .025 vaginally Cervical Ripening Agents: Cervidil Cervical Ripening Agents: Cervidil Cervical Ripening Agents: Cervidil Oxytocin: Induction Group B Beta Strep: negative Antibiotics # of Doses: 1 Antibiotics Time of Last Dose: 1602 Name of Antibiotic Given: Ancef 2 Grams Steroids Given: None Reason Steroids Not Administered: Not Applicable MEMBRANES Membranes Rupture Method: Artificial Rupture of Membranes: 02/23/2018 23:34 Length of Rupture (hr): -6.68 Amniotic Fluid Color: Clear Amniotic Fluid Amount: Moderate Amniotic Fluid Odor: Normal STAGES OF LABOR Stage 3 hr: 0 Stage 3 min: 1 Total Time in Labor hr: 6 Total Time in Labor min: 0 VAGINAL DELIVERY Episiotomy: None Laceration #1: None Laceration Extension #1: N/A Sponge Count Correct: N/A Sharps Count Correct: N/A CSECTION DELIVERY Primary Indication: Failed Induction Secondary Indication: N/A CSection Urgency: Non-Scheduled CSection Incidence: Primary Labor: No Labor Elective: Nonelective CSection Incision: Lower Uterine Transverse BABY A INFORMATION Delivery Date/Time: 02/23/2018 16:53 Method of Delivery: Born in Route : No : N/A Forceps: N/A Forceps: N/A Vacuum Extraction: N/A Shoulder Dystocia : No PRESENTATION/POSITION BABY A Presentation: Cephalic Presentation: Cephalic Presentation: Cephalic Presentation: Cephalic Cephalic Presentation: Vertex Breech Presentation: N/A PLACENTA INFORMATION BABY A Placenta Delivery Time : 02/23/2018 16:54 Placenta Method of Delivery: Manual Removal Placenta Status: Delivered SCORES BABY A Heart Rate 1 min: >100 bpm Resp Effort 1 min: Good Cry Reflex Irritability 1 min: Cough or Sneeze or Pulls Away Muscle Tone 1 min: Active Motion Color 1 min: Blue/Pale Resuscitation Effort 1 min: N/A SCORE 1 MIN: 8 Heart Rate 5 min: >100 bpm Resp Effort 5 min: Good Cry Reflex Irritability 5 min: Cough or Sneeze or Pulls Away Muscle Tone 5 min: Active Motion Color 5 min: Body [place], Extremities Blue Resuscitation Effort 5 min: N/A SCORE 5 MIN: 9 INFANT INFORMATION BABY A Gestational Age at Delivery: 37.3 Gestational Status: Early Term- 37- 38.6 Weeks Outcome : Liveborn Infant Condition : Stable Sex: Female IDENTIFICATION BABY A Verification Date/Time: 02/23/2018 16:50 ID Band Number: [id number] Mother's Name Verified: Yes Infant RN Verifying : j. ozard/h. noble WEIGHT/LENGTH BABY A Infant Birthweight (gm): 3770 Infant Weight (lb): 8 Infant Weight (oz): 5 Infant Length (in): 21.00 Infant Length (cm): 53.34 CORD INFORMATION BABY A No. Cord Vessels: 3 No. Cord Vessels: 3 Nuchal Cord : Around Neck x1, Loose Cord Blood Taken: Yes-For Eval (Mom's Blood Type - or O+) Infant Suction: None ASSESSMENT BABY A Complications: None Physical Findings at Delivery: Molding of the Head Infant Respirations: Appears Normal Skin to Skin: Yes Production Team Member/ALS Called : No Care By: Tracy Arrieta RN
[2018-02-25] MEDS ORDERED: FERROUS SULFATE 325 MG TABLET PO SCH (10:00)
[2018-02-25] MEDS: PRENATAL VITAMIN W DHA CAPSULE PO SCH (10:43)
[2018-02-25] MEDS: DOCUSATE SODIUM 100 MG CAPSULE PO SCH (10:43)
[2018-02-25 12:48] VITALS: BP 146/84
== END 2018-02-25 14:00 | disposition home or self-care (01) | DRG 784 ==
LOC: LR 17:17 → 2S 02-23 19:53
PROVIDERS: ADMIT Obstetrics & Gynecology; ATTEND Obstetrics & Gynecology
PROC: 10D00Z1 Extraction of Products of Conception, Low, Open Approach (ICD-10-PCS; principal; 2018-02-23)
PROC: 0UL70CZ Occlusion of Bilateral Fallopian Tubes with Extraluminal Device, Open Approach (ICD-10-PCS; 2018-02-23)
PROC: 3E0234Z Introduction of Serum, Toxoid and Vaccine into Muscle, Percutaneous Approach (ICD-10-PCS; 2018-02-25)
DX: O10.92 Unspecified pre-existing hypertension complicating childbirth (principal); O36.0930 Maternal care for other rhesus isoimmunization, third trimester, not applicable or unspecified; D62 Acute posthemorrhagic anemia; O24.425 Gestational diabetes mellitus in childbirth, controlled by oral hypoglycemic drugs; O99.214 Obesity complicating childbirth; O64.0XX0 Obstructed labor due to incomplete rotation of fetal head, not applicable or unspecified; O62.1 Secondary uterine inertia; O99.02 Anemia complicating childbirth; O69.81X0 Labor and delivery complicated by cord around neck, without compression, not applicable or unspecified; Z3A.40 40 weeks gestation of pregnancy; Z37.0 Single live birth; Z30.2 Encounter for sterilization
CPT/HCPCS: 1961; 36415; 80053; 80307; 81005; 82962; 83615; 84550; 85025; 85027; 85461; 86592; 86850; 86870; 86900; 86901; 94799; C1726; C1758; J0131; J0360; J0690; J1170; J1756; J1885; J2250; J2370; J2405; J2550; J2590; J2790; J3010; J3490